=== PATIENT | male | born 1950 | race Caucasian/White ===

== ENCOUNTER 2016-12-20 00:04 | Day surgery (SDC) | payer MEDICARE ==
[~2016-12-20] VITALS: Ht 169.6 cm; Wt 87.0 kg
[2016-12-20] VITALS (17 sets, daily range): BP systolic 114–135; BP diastolic 65–84; PULSE 51–67; RESP 12–21; O2SAT 53–99
[~2016-12-20 00:04] MED LIST: ASPI-973 PO
--- NOTE | 2016-12-20 06:45 | NUR ---
ADMISSION NOTE MALE PT ADMITTED FOR HEART CATH. DISCUSSED PLAN OF CARE WITH PT AND . SEE ADMIT AND FLOW SHEET
[2016-12-20 07:13] LABS: BASOPHILS % (AUTO) 0.4 % (0-3); EOSINOPHILS % (AUTO) 3.6 % (0-5); MONOCYTES % (AUTO) 7.8 % (4-12); Mean Corpuscular Volume 87.6 fL (81-100); NEUTROPHILS % (AUTO) 65.4 % (40-74); Platelet Count 155 bil/L (150-400)
[2016-12-20 07:28] LABS: INR 0.98 ratio
[2016-12-20] MEDS ORDERED: 0.9% Sodium Chloride 1,000 ML IV ONE (07:39)
[2016-12-20] MEDS ORDERED: diphenhydrAMINE 25 mg Capsule PO ONE (08:00)
[2016-12-20] MEDS ORDERED: Heparin 10,000 Unit/1,000 mL NS Premix IV ONE (08:07)
[2016-12-20] MEDS ORDERED: Heparin 1,000 Units/500 mL NS Premix IV ONE (08:07)
[2016-12-20] MEDS ORDERED: 0.9% Sodium Chloride 50 ML ONE (08:08)
[2016-12-20] MEDS ORDERED: fentaNYL-PF 50 mCg/mL 2 mL Inj ONE (08:40)
--- NOTE | 2016-12-20 11:31 | CS94 ---
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 The patient is being planned to have mitral valve repair surgery. Hence, left and right heart catheterization was planned to rule out coronary artery disease and to assess intracardiac pressure prior to mitral valve surgery. CONSENT: Informed consent was obtained from the patient after explaining benefits and the risks, which include, but not limited to, risk of bleeding, groin complication, myocardial infarction, stroke, , renal insufficiency, peripheral vascular complication, etc. The patient and his verbalizes understanding. All the questions were answered. An informed consent was obtained. ICU RN: Delbert Echavarria MD PROCEDURE: 1. Left heart catheterization. 2. Coronary arteriography. 3. Left ventriculography. 4. Right heart catheterization. DESCRIPTION OF PROCEDURE: Right groin was cleaned, prepped, and draped in the usual sterile fashion. The skin and subcutaneous tissue was anesthetized with 1% lidocaine. Right femoral artery was accessed. A 6-[place] sheath was introduced into the right femoral artery using modified Seldinger technique. The right femoral vein was accessed. An 8-[place] sheath was introduced into the right femoral vein using modified Seldinger technique. The left coronary artery was engaged with 6-[place] JL4 catheter. Right coronary artery was engaged with 6-[place] JR4, and left ventriculography was done with 6-[place] pigtail catheter. All the catheters were advanced over the guidewire and flushed with heparinized saline. All the exchanges were made over the guidewire. For right heart catheterization, we used standard balloon tipped [place]-Carlos catheter, and right heart catheterization was performed as per standard protocol. Cardiac output was performed. Saturations from different cardiac chambers as well as pressures were obtained. After completion of the right heart catheterization, a [place]-Carlos catheter was pulled out with the balloon deflated. The patient tolerated the procedure well. There was no immediate complication. Total of about 180 cc Isovue dye was used. Hemostasis will be achieved by manual compression. HEMODYNAMICS: 1. Left ventricle systolic pressure was about 129 mmHg and LVEDP was about 18 mmHg. Aortic pressure was 129/67 mmHg. There was no significant pullback gradient between the aorta and left ventricle. 2. Pulmonary artery pressure was 31/11 mmHg with mean 19 mmHg. Mean pulmonary capillary wedge pressure was about 10 mmHg. RV systolic pressure was 33 mmHg, and RV end-diastolic pressure about 10 mmHg. Mean right atrial pressure was about 5 mmHg. RA saturation was 74, RV 71, and PA saturation was about 71%. Wedge and arterial saturation was 96%. The Reza principal cardiac output was 6.2 L/minute and cardiac index 3.13. With thermodilution technique, cardiac output 5.57 L/minute and cardiac index 2.81. There was no significant shunt. Wedge tracing revealed prominent CV wave suggestive of significant mitral regurgitation. LEFT VENTRICULOGRAPHY: The left ventriculography revealed estimated LV ejection fraction about 65-70% with prolapse of the mitral leaflets with severe mitral regurgitation filling the left atrium. Left atrium appears to be severely enlarged. CORONARY ARTERY ANATOMY: 1. Left main artery: The left main artery is a long artery and it is a calcified artery. In the mid portion, it harbors about 20-30% disease. Left main does not have any critical disease. The dye was flushing back. There was no dampening of pressure. 2. Left anterior descending artery: The left anterior descending artery in the proximal portion and mid portion harbors calcification and mild disease. However, in the mid to distal portion, LAD entirely appears a small vessel. It is about 2 mm or less than 2 mm vessel. I do not see any focal discrete critical disease in the entire LAD system. 3. First diagonal branch: The first diagonal branch harbors long 70-80% proximal disease. It further divides into the superior and inferior branches. They have luminal irregularities. Diagonal branch is about 2 mm or less than 2 mm vessel. 4. Circumflex artery: The circumflex artery is a nondominant artery. In the mid portion, it gives rise to a decent size obtuse marginal branch. The circumflex artery at the bifurcation of this mid obtuse marginal branch has about eccentric 70-75% lesion extending into the ostium of this mid obtuse marginal branch. The distal circumflex does not have any critical disease. There appears to be ramus intermedius which appears to be small vessel without any critical disease. 5. Right coronary artery: The right coronary artery is a dominant artery. It is a good size artery. It has some calcification. In the proximal portion, it is tortuous and has about 40-50% disease. In the mid portion, it has about 20-30% disease. In the distal portion, it has about 30-40% disease. PDA and PLV branches have some luminal irregularities. I do not see any critical stenosis in the RCA system. RV marginal branches were small vessels and have diffuse disease. There was MANI-3 flow. CONCLUSION: 1. About 70-75% mid circumflex disease extending into the ostium of the mid obtuse marginal branch which is a decent size vessel. The first diagonal branch has 70-80% diffuse proximal disease. It is about 2 mm or less than 2 mm vessel. LAD in the mid to distal portion tapers to a small vessel without any focal critical disease. There was MANI-3 flow. Right coronary artery is a large dominant artery and harbors noncritical disease as described above. 2. LVEDP about 18 mmHg, which is elevated. However, mean wedge pressure is about 10, likely due to compensation by left atrium enlargement. Systolic PA pressure about 31 mmHg. Mean 19 mmHg. Mean RA pressure about 5 mmHg. No significant gradient between the aorta and left ventricle. Prominent CV wave in the wedge tracing suggestive of significant MR. LV ejection fraction on visual estimation about 65-70%. MANAGEMENT OF CORONARY ARTERY DISEASE: I will leave up to the CT surgery team in [place] and with Dr. Pizarro. I will leave up to them whether they want to proceed with bypass surgery and mitral valve repair, or PCI of circumflex and diagonal plus mitral valve repair. Meanwhile, I will manage him medically. He is on aspirin 81 mg daily. I will start him on atorvastatin 40 mg and metoprolol succinate 25 mg daily. Benefits, side effects and indication of above-mentioned therapy discussed with the patient. Groin care discussed. CC: Mariano Pizarro MD, [facility]
--- NOTE | 2016-12-20 14:30 | NUR ---
DISCHARGED TO HOME, INSTRUCTIONS GIVEN
== END 2016-12-20 23:59 | disposition home or self-care (01) ==
LOC: SOUO 00:04
PROVIDERS: ATTEND Internal Medicine Cardiovascular Disease
DX: Z01.810 Encounter for preprocedural cardiovascular examination (principal); I34.0 Nonrheumatic mitral (valve) insufficiency; I34.1 Nonrheumatic mitral (valve) prolapse; I25.10 Atherosclerotic heart disease of native coronary artery without angina pectoris; E78.00 Pure hypercholesterolemia, unspecified; G47.33 Obstructive sleep apnea (adult) (pediatric); Z79.82 Long term (current) use of aspirin; I27.2 Other secondary pulmonary hypertension
CPT/HCPCS: 36415; 80048; 85025; 85610; 93005; 93460; 99152; 99153; C1769; J1644; J2250; J3010; J7030; Q9967